=== PATIENT | male | born 1995 | race Caucasian/White ===

== ENCOUNTER 2021-05-04 23:08 | Emergency (ER) | payer SELFPAY ==
[2021-05-05 00:15] VITALS: BP 101/70; PULSE 75; TEMP 97.8; BMI 20.9
[2021-05-05] MEDS ORDERED: SILVER SULFADIAZINE 1% TOP CREAM 50 GM JAR TP ONE (01:09)
[2021-05-05] MEDS ORDERED: CEPHALEXIN MONOHYDRATE 500 MG CAPSULE (UD) PO ONE (01:33)
[2021-05-05] MEDS ORDERED: CEPHALEXIN MONOHYDRATE 500 MG CAPSULE (UD) ONE (02:08)
== END 2021-05-05 03:29 | disposition home or self-care (01) ==
LOC: JER 23:08
DX: T23.072A Burn of unspecified degree of left wrist, initial encounter (principal); X10.1XXA Contact with hot food, initial encounter
CPT/HCPCS: 99283-25